=== PATIENT | female | born 1970 | race Caucasian/White ===

== ENCOUNTER 2020-08-18 08:35 | Day surgery (SDC) | payer BC ==
[~2020-08-18] VITALS: Ht 162.6 cm; Wt 74.2 kg
[~2020-08-18 08:35] MED LIST: Aspir 8181 MG; BUTALB-ACETAMI1 EAC1; CHOL10002; Fiorinal Capsu1 EACH; Flomax0.4 MG PO; Percocet 5-3251 EACH PO; Zofran4 MG PO
[2020-08-18] MEDS ORDERED: Lysine500 MG (09:03)
[2020-08-18] MEDS ORDERED: Vitamin E400 UNI4 (09:04)
[2020-08-18] MEDS ORDERED: C COMPLEX1000 M1 (09:04)
== END 2020-08-18 10:22 | disposition home or self-care (01) ==
LOC: ORSCSDS 08:35
PROVIDERS: Internal Medicine Gastroenterology
PROC: 0D758ZZ Dilation of Esophagus, Via Natural or Artificial Opening Endoscopic (ICD-10-PCS; principal; 2020-08-18 09:45)
PROC: 0DB58ZX Excision of Esophagus, Via Natural or Artificial Opening Endoscopic, Diagnostic (ICD-10-PCS; principal; 2020-08-18 09:45)
PROC: 0DB68ZX Excision of Stomach, Via Natural or Artificial Opening Endoscopic, Diagnostic (ICD-10-PCS; principal; 2020-08-18 09:45)
DX: R13.10 Dysphagia, unspecified (principal); K20.0 Eosinophilic esophagitis; K31.7 Polyp of stomach and duodenum; K44.9 Diaphragmatic hernia without obstruction or gangrene
CPT/HCPCS: 88305; 88342; J2704; J7120

== ENCOUNTER 2020-10-01 07:43 | Day surgery (SDC) | payer BC ==
[~2020-10-01] VITALS: Ht 162.6 cm; Wt 73.4 kg
[~2020-10-01 07:43] MED LIST changes: +C COMPLEX1000 M1; +Lysine500 MG; +Vitamin E400 UNI4
== END 2020-10-01 10:08 | disposition home or self-care (01) ==
LOC: ORSCSDS 07:43
PROVIDERS: Internal Medicine Gastroenterology
PROC: 0DJD8ZZ Inspection of Lower Intestinal Tract, Via Natural or Artificial Opening Endoscopic (ICD-10-PCS; principal; 2020-10-01 09:00)
DX: Z12.11 Encounter for screening for malignant neoplasm of colon (principal); D12.3 Benign neoplasm of transverse colon
CPT/HCPCS: 88305; J2704; J7120